=== PATIENT | male | born 1970 | race Hispanic/Latino ===

== ENCOUNTER 2019-02-20 12:02 | Emergency (ER) | payer SELFPAY ==
[2019-02-20] MEDS ORDERED: FENTANYL CITR 100 MCG/2 ML ONE (12:40)
[2019-02-20] MEDS ORDERED: ONDANSETRON 4 MG/2 ML VIAL ONE (12:40)
[2019-02-20] MEDS ORDERED: TETANUS & DIPHTHERIA TOX,ADULT 0.5 ML VIAL ONE (12:41)
[2019-02-20] MEDS ORDERED: NA CHLORIDE 0.9% 1,000 ML ONE (12:41)
[2019-02-20] MEDS ORDERED: MIDAZOLAM HCL 2 MG/2 ML INJ ONE (13:32)
[2019-02-20] MEDS ORDERED: BACI/NEOMYCIN/POLY OINT 15GM TOP ONE (13:43)
--- NOTE | 2019-02-20 13:54 | EDPHYS ---
Physician Documentation [facility] Name: Stefan Finley Age: 48 yrs Sex: Male : 1970 Arrival Date: 02/20/2019 Time: 12:03 Bed 2 Private MD: ED Physician Alex Spicer HPI: 02/20 13:50 This 48 yrs old Male presents to ER via EMS with complaints of Burn. jr8 13:50 The patient presents with a burn as a result of hot surface, at work, is located on the jr8 back. Onset: The symptoms/episode began/occurred acutely, today. Burn type and severity: 2nd degree: approximately 2% total body surface area of second degree injury. Associated signs and symptoms: none. The patient had no loss of consciousness. The patient has not experienced similar symptoms in the past. The patient has not recently seen a physician. Patient stated that he accidently touched his back to hot pipe while at work causing burn to back. Denies any other trauma or burn sites . Historical: - Allergies: 12:07 Sulfa (Sulfonamide Antibiotics); hj - Home Meds: 12:07 None [Active]; hj - PMHx: 12:07 None; hj - PSHx: 12:07 None; hj - Immunization history:: Adult Immunizations up to date. - Social history:: Smoking status: Patient uses tobacco products, Patient/guardian denies using alcohol. - Ebola Screening: : Patient negative for fever greater than or equal to 101.5 degrees Fahrenheit, and additional compatible Ebola Virus Disease symptoms Patient denies exposure to infectious person Patient denies travel to an Ebola-affected area in the 21 days before illness onset. ROS: 13:50 Eyes: Negative for injury, pain, redness, and discharge, ENT: Negative for injury, jr8 pain, and discharge, Neck: Negative for injury, pain, and swelling, Cardiovascular: Negative for chest pain, palpitations, and edema, Respiratory: Negative for shortness of breath, cough, wheezing, and pleuritic chest pain, Abdomen/GI: Negative for abdominal pain, nausea, vomiting, diarrhea, and constipation, Back: Negative for injury and pain, MS/Extremity: Negative for injury and deformity, Neuro: Negative for headache, weakness, numbness, tingling, and seizure. 13:50 Skin: Positive for burn, of the back. Exam: 13:50 Eyes: Pupils equal round and reactive to light, extra-ocular motions intact. Lids and jr8 lashes normal. Conjunctiva and sclera are non-icteric and not injected. Cornea within normal limits. Periorbital areas with no swelling, redness, or edema. ENT: Nares patent. No nasal discharge, no septal abnormalities noted. Tympanic membranes are normal and external auditory canals are clear. Oropharynx with no redness, swelling, or masses, exudates, or evidence of obstruction, uvula midline. Mucous membranes moist. Neck: Trachea midline, no thyromegaly or masses palpated, and no cervical lymphadenopathy. Supple, full range of motion without nuchal rigidity, or vertebral point tenderness. No Meningismus. Cardiovascular: Regular rate and rhythm with a normal S1 and S2. No gallops, murmurs, or rubs. Normal PMI, no JVD. No pulse deficits. Respiratory: Lungs have equal breath sounds bilaterally, clear to auscultation and percussion. No rales, rhonchi or wheezes noted. No increased work of breathing, no retractions or nasal flaring. Abdomen/GI: Soft, non-tender, with normal bowel sounds. No distension or tympany. No guarding or rebound. No evidence of tenderness throughout. Back: No spinal tenderness. No costovertebral tenderness. Full range of motion. MS/ Extremity: Pulses equal, no cyanosis. Neurovascular intact. Full, normal range of motion. Neuro: Awake and alert, GCS 15, oriented to person, place, time, and situation. Cranial nerves II-XII grossly intact. Motor strength 5/5 in all extremities. Sensory grossly intact. Cerebellar exam normal. Normal gait. 13:50 Skin: injury, burn(s), 2nd degree burn injury covers approximately 2% of the total body surface area, and is located on the low back area. Vital Signs: 12:09 BP 158 / 95; Pulse 79; Resp 18; Temp 98.7(O); Pulse Ox 98% on R/A; Weight 77.11 kg; hj Height 5 ft. 5 in. (165.10 cm); Pain 10/10; 12:41 BP 132 / 89; Pulse 66; Resp 14; Pulse Ox 96% ; bp 12:09 Body Mass Index 28.29 (77.11 kg, 165.10 cm) Procedures: 13:50 Burn Care: the burn(s) are located on the back, cleaned with Hibiclens, normal saline, jr8 debrided, wound edges, dressed with antibiotic ointment, non-stick dressing. Moderate sedation: Pre-procedure assessment: the patient has been NPO 4 hour(s) prior to arrival, ASA physical classification: I - healthy, no underlying organic disease, Airway assessment: able to hyperextend neck, able to maintain airway, can open mouth without difficulty, Mallampati classification of tongue size: I - faucial pillars, soft palate, and uvula can be fully visualized, Monitoring during procedure: telemetry monitor, continuous pulse oximetry, nurse at bedside at all times, Medications employed: Versed, 4 mg(s), Post-procedure assessment: the patient is mildly sedated, Stallworth sedation score: 2 - patient cooperative, oriented, and tranquil, Respiratory status: even and unlabored, a reversal agent was not used. MDM: 12:04 Patient medically screened. [facility] 13:50 Data reviewed: vital signs, nurses notes, and as a result, I will discharge patient. [facility] Data interpreted: Pulse oximetry: on room air is 96 %. Interpretation: normal. Counseling: I had a detailed discussion with the patient and/or guardian regarding: the historical points, exam findings, and any diagnostic results supporting the discharge/admit diagnosis, the need for outpatient follow up, a family practitioner, to return to the emergency department if symptoms worsen or persist or if there are any questions or concerns that arise at home. 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 Exp: bp 11/11/2020. Lot #: [id number]. } Route: IM; Site: right deltoid; 14:05 Follow up: Response: No adverse reaction 12:20 Drug: fentaNYL (PF) 75 mcg Route: IVP; Site: right antecubital; bp 14:04 Follow up: Response: Pain is decreased 12:20 Drug: Zofran 4 mg Route: IVP; Site: right antecubital; bp 14:04 Follow up: Response: No adverse reaction; Nausea is decreased Disposition: 02/21 09:43 Co-signature as Attending Physician, Alex Spicer MD I agree with the assessment and wa plan of care. Disposition: 02/20/19 13:53 Discharged to Home. Impression: Burn of second degree of lower back. - Condition is Stable. - Discharge Instructions: Burn Care, Adult, Second-Degree Burn. - Prescriptions for Ibuprofen 800 mg Oral Tablet - take 1 tablet by ORAL route every 8 hours As needed take with food; 30 tablet. - Medication Reconciliation Form, Thank You Letter, Antibiotic Education, Prescription Opioid Use form. - Follow up: Private Physician; When: Tomorrow; Reason: Wound Recheck, Recheck today's complaints, Continuance of care, Re-evaluation by your physician. - Problem is new. - Symptoms have improved. - Notes: Bacitracin over the counter to be applied daily to burn site Signatures: Gerry Mejia PA PA jr8 Caesar Santana RN RN hj Appiah, William, MD MD tx Petr Bernabe, RN RN bp Corrections: (The following items were deleted from the chart) 02/20 14:03 13:53 02/20/2019 13:53 Discharged to Home. Impression: Burn of second degree of lower hj back. Condition is Stable. Forms are Medication Reconciliation Form, Thank You Letter, Antibiotic Education, Prescription Opioid Use. Follow up: Private Physician; When: Tomorrow; Reason: Wound Recheck, Recheck today's complaints, Continuance of care, Re-evaluation by your physician. Problem is new. Symptoms have improved. jr8
--- NOTE | 2019-02-20 13:54 | ER ---
Nurse's Notes [facility] Name: Stefan Finley Age: 48 yrs Sex: Male : 1970 Arrival Date: 02/20/2019 Time: 12:03 Bed 2 Private MD: Diagnosis: Burn of second degree of lower back Presentation: 02/20 12:04 Presenting complaint: EMS states: at work from [employer], complaints of lower back hj burn from a "dryer" equipment, happened around 11:00; EMS got called around 1123 am on scene; 18g R AC;. Transition of care: patient was not received from another setting of care. Onset of symptoms was February 20, 2019. Risk Assessment: Do you want to hurt yourself or someone else? Patient reports no desire to harm self or others. Initial Sepsis Screen: Does the patient meet any 2 criteria? No. Patient's initial sepsis screen is negative. Does the patient have a suspected source of infection? No. Patient's initial sepsis screen is negative. Care prior to arrival: None. 12:04 Method Of Arrival: EMS: [facility] 12:04 Acuity: DNAIELITO 3 hj Triage Assessment: 12:08 General: Appears in no apparent distress. uncomfortable, Behavior is calm, cooperative, hj appropriate for age. Pain: Complains of pain in low back area, left low back and right low back. Respiratory: Airway is patent Respiratory effort is even, unlabored, Respiratory pattern is regular, symmetrical. Injury Description: Historical: - Allergies: 12:07 Sulfa (Sulfonamide Antibiotics); hj - Home Meds: 12:07 None [Active]; hj - PMHx: 12:07 None; hj - PSHx: 12:07 None; hj - Immunization history:: Adult Immunizations up to date. - Social history:: Smoking status: Patient uses tobacco products, Patient/guardian denies using alcohol. - Ebola Screening: : Patient negative for fever greater than or equal to 101.5 degrees Fahrenheit, and additional compatible Ebola Virus Disease symptoms Patient denies exposure to infectious person Patient denies travel to an Ebola-affected area in the 21 days before illness onset. Screenin:07 Abuse screen: Denies threats or abuse. Denies injuries from another. Nutritional hj screening: No deficits noted. Tuberculosis screening: No symptoms or risk factors identified. Fall Risk None identified. Assessment: 12:10 General: SEE TRIAGE NOTE. Injury Description: Burn was sustained 30-60 minutes ago. bp Patient sustained second-degree burn(s) to low back area. Estimated total body surface area burned is 2%, using the Rule of Palms. Vital Signs: 12:09 BP 158 / 95; Pulse 79; Resp 18; Temp 98.7(O); Pulse Ox 98% on R/A; Weight 77.11 kg; hj Height 5 ft. 5 in. (165.10 cm); Pain 10/10; 12:41 BP 132 / 89; Pulse 66; Resp 14; Pulse Ox 96% ; bp 12:09 Body Mass Index 28.29 (77.11 kg, 165.10 cm) hj ED Course: 12:03 Patient arrived in ED. hj 12:04 Gerry Mejia PA is PHCP. jr8 12:04 Alex Spicer MD is Attending Physician. jr8 12:06 Triage completed. hj 12:08 Arm band placed on right wrist. hj 12:09 Patient has correct armband on for positive identification. Bed in low position. Call hj light in reach. Side rails up X2. 12:10 Petr Bernabe, RN is Primary Nurse. bp 12:10 Maintain EMS IV. Dressing intact. Good blood return noted. Site clean \\T\\ dry. Gauge \\T\\ bp site: 18 G R AC. 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 Exp: bp 11/11/2020. Lot #: [id number]. } Route: IM; Site: right deltoid; 14:05 Follow up: Response: No adverse reaction hj 12:20 Drug: fentaNYL (PF) 75 mcg Route: IVP; Site: right antecubital; bp 14:04 Follow up: Response: Pain is decreased hj 12:20 Drug: Zofran 4 mg Route: IVP; Site: right antecubital; bp 14:04 Follow up: Response: No adverse reaction; Nausea is decreased hj Outcome: 13:53 Discharge ordered by . jr8 14:03 Patient left the ED. hj Signatures: Gerry Mejia PA PA jr8 Caesar Santana RN RN hj Petr Bernabe RN RN bp Corrections: (The following items were deleted from the chart) 12:34 12:09 Derm: Reports burning, bp 12:40 12:10 Inserted saline lock: 20 gauge in right antecubital area, using aseptic bp technique. bp
== END 2019-02-20 14:03 | disposition home or self-care (01) ==
LOC: ER 12:02
PROC: 0HB6XZZ Excision of Back Skin, External Approach (ICD-10-PCS; principal; 2019-02-20)
DX: T21.24XA Burn of second degree of lower back, initial encounter (principal); T31.0 Burns involving less than 10% of body surface; X16.XXXA Contact with hot heating appliances, radiators and pipes, initial encounter; Y93.89 Activity, other specified; Y92.89 Other specified places as the place of occurrence of the external cause; Y99.8 Other external cause status; Z72.0 Tobacco use; Z88.2 Allergy status to sulfonamides
CPT/HCPCS: 90471; 90714; 96374; 96375; 99283; J2250; J2405; J3010; J7030

== ENCOUNTER 2021-02-27 08:55 | Emergency (ER) | payer SELFPAY ==
--- OUTSIDE RECORDS SUMMARY | 2021-02-27 08:58 | XMS REPORT | Continuity of Care Document ---
:1970 Author Organization [facility] t Address [facility] [place] [address] Care Team Providers Name Role Phone Unavailable Unavailable Unavailable Problems This patient has no known problems. Allergies, Adverse Reactions, Alerts This patient has no known allergies or adverse reactions. Medications This patient has no known medications. Procedures This patient has no known procedures. Results This patient has no known results.
[2021-02-27] MEDS ORDERED: KETOROLAC 30 MG/ML INJ ONE (09:53)
[2021-02-27] MEDS ORDERED: METHYLPREDNISOLONE 125 MG INJ ONE (09:53)
[2021-02-27] MEDS ORDERED: GABAPENTIN 300 MG CAP ONE (09:53)
--- NOTE | 2021-02-27 09:55 | RAD REPORT ---
EXAM DESCRIPTION: CT - C Spine Wo Con - 02/27/2021 9:37 am CLINICAL HISTORY: PAIN COMPARISON: No comparisons TECHNIQUE CT Scan was obtained of the cervical spine without contrast. Reformats were provided in th e sagittal and coronal plane. FINDINGS: No acute fracture of the cervical spine. No traumatic malalignment. No prevertebral edema. There is a broad-based disc bulge at the C5-6 level which results in effacement of ventral thecal sa c. There is also a central disc herniation at C6-7 without significant central spinal stenosis. No whitehead spicious thyroid nodules or lymphadenopathy. The lung apices are clear. IMPRESSION: No fracture or traumatic malalignment of the cervical spine. Disc bulges/herniations at C5-C6 and C6-C7 which results in some thecal sac effacement though not severe. Nonemergent MRI could better evaluate if clinically indicated.
--- NOTE | 2021-02-27 10:52 | ER ---
Nurse's Notes [facility] Name: Stefan Finley Age: 50 yrs Sex: Male : 1970 Arrival Date: 02/27/2021 Time: 08:58 Bed 5 Private MD: Diagnosis: Radiculopathy, cervical region;Unspecified mononeuropathy of left upper limb Presentation: 02/27 09:11 Chief complaint: Patient states: knot to L side of neck x months that causes pain to ss radiate down L arm. Pt reports that he was seen before in another ER and told that he just needed to have it massaged out. Pt reports that the knot seems to be bigger and pain has been increasing. Coronavirus screen: Client denies travel out of the [place] in the last 14 days. Ebola Screen: Patient denies exposure to infectious person. Patient denies travel to an Ebola-affected area in the 21 days before illness onset. Initial Sepsis Screen: Does the patient meet any 2 criteria? No. Patient's initial sepsis screen is negative. Does the patient have a suspected source of infection? No. Patient's initial sepsis screen is negative. Risk Assessment: Do you want to hurt yourself or someone else? Patient reports no desire to harm self or others. Onset of symptoms is unknown. 09:11 Method Of Arrival: Ambulatory ss 09:11 Acuity: DANIELITO 4 ss Historical: - Allergies: 09:15 Sulfa (Sulfonamide Antibiotics); tw2 - Home Meds: 09:15 None [Active]; tw2 - PMHx: 09:15 None; tw2 - Immunization history:: Adult Immunizations. - Social history:: Smoking status: . Screenin:11 Abuse screen: Denies threats or abuse. Nutritional screening: No deficits noted. tw2 Tuberculosis screening: No symptoms or risk factors identified. Fall Risk None identified. Assessment: 09:03 General: Appears in no apparent distress. uncomfortable, well groomed, Behavior is tw2 calm, cooperative, appropriate for age. Pain: Complains of pain in left shoulder. Neuro: Level of Consciousness is awake, alert, obeys commands, Oriented to person, place, time, situation. Cardiovascular: Patient's skin is warm and dry. Respiratory: Airway is patent Respiratory effort is even, unlabored, Respiratory pattern is regular, symmetrical. GI: No signs and/or symptoms were reported involving the gastrointestinal system. : No signs and/or symptoms were reported regarding the genitourinary system. EENT: No signs and/or symptoms were reported regarding the EENT system. Derm: No signs and/or symptoms reported regarding the dermatologic system. Musculoskeletal: Circulation, motion, and sensation intact. Range of motion: intact in all extremities. 10:10 Reassessment: Patient appears in no apparent distress at this time. No changes from tw2 previously documented assessment. Patient and/or family updated on plan of care and expected duration. Pain level reassessed. Patient is alert, oriented x 3, equal unlabored respirations, skin warm/dry/pink. 11:37 Reassessment: Patient appears in no apparent distress at this time. No changes from tw2 previously documented assessment. Patient and/or family updated on plan of care and expected duration. Pain level reassessed. Patient is alert, oriented x 3, equal unlabored respirations, skin warm/dry/pink. Vital Signs: 09:11 BP 159 / 100; Pulse 65; Resp 16; Temp 97.9(TE); Pulse Ox 99% on R/A; Weight 84.82 kg; ss Height 5 ft. 5 in. (165.10 cm); Pain 8/10; 09:14 BP 159 / 100; Pulse 66; Resp 17; Pulse Ox 97% on R/A; tw2 09:55 BP 134 / 91; Pulse 65; Resp 17; Pulse Ox 97% on R/A; tw2 10:48 BP 132 / 91; Pulse 59; Resp 18; Pulse Ox 100% ; sv 11:37 BP 132 / 91; Pulse 57; Resp 17; Pulse Ox 99% on R/A; tw2 09:11 Body Mass Index 31.12 (84.82 kg, 165.10 cm) ED Course: 08:58 Patient arrived in ED. wm 09:01 Scar Field MD is Attending Physician. kdr 09:03 Bed in low position. Call light in reach. Pulse ox on. NIBP on. tw2 09:11 Dona Fields, LUIS is Primary Nurse. tw2 09:14 Arm band placed on. tw2 09:16 Triage completed. ss 09:33 Awaiting: medication from pharmacy. tw2 09:37 CT C Spine In Process Unspecified. EDMS 09:50 Inserted saline lock: 20 gauge in right antecubital area, using aseptic technique. tw2 10:52 Awaiting: completion of IV medication PRIOR to discharge. tw2 11:38 No provider procedures requiring assistance completed. IV discontinued, intact, tw2 bleeding controlled, No redness/swelling at site. Pressure dressing applied. Administered Medications: 09:50 Drug: Neurontin (gabapentin) 300 mg Route: PO; tw2 10:14 Follow up: Response: No adverse reaction tw2 09:53 Drug: Ketorolac 15 mg Route: IVP; Site: right antecubital; tw2 10:14 Follow up: Response: No adverse reaction tw2 09:55 Drug: SOLU-Medrol (methylPrednisoLONE) 125 mg Route: IVP; Site: right antecubital; tw2 10:16 Follow up: Response: No adverse reaction tw2 10:14 Drug: Robaxin (methocarbamol) 1 grams Route: IVPB; Infused Over: 1 hrs; Site: right tw2 antecubital; 11:25 Follow up: Response: No adverse reaction; IV Status: Completed infusion tw2 Outcome: 10:52 Discharge ordered by . kdr 11:38 Discharged to home ambulatory. tw2 11:38 Condition: stable 11:38 Discharge instructions given to patient, Instructed on discharge instructions, follow up and referral plans. no drinking with medication, no driving heavy equipment, medication usage, Demonstrated understanding of instructions, follow-up care, medications, Prescriptions given X 3. 11:38 Patient left the ED. tw2 Signatures: Dispatcher [employer] EDTX Aline Hood RN RN Scar Field MD MD [facility] Rosanna Mtz RN RN Dona Fields RN RN [facility] Tammi Peña
--- NOTE | 2021-02-27 10:52 | EDPHYS ---
Physician Documentation [facility] Name: Stefan Finley Age: 50 yrs Sex: Male : 1970 Arrival Date: 02/27/2021 Time: 08:58 Bed 5 Private MD: ED Physician Scar Field HPI: 02/27 11:16 This 50 yrs old Male presents to ER via Ambulatory with complaints of Shoulder kdr Pain. 11:16 The patient or guardian complains of pain, that is chronic. kdr 11:17 The patient's problem is reported as pain radiating down his left arm. Onset: The kdr symptoms/episode began/occurred gradually, 2.5 month(s) ago. Duration: The episode is continuous. Context: symptoms became apparent at an unknown time. The symptoms are alleviated by nothing. The symptoms are aggravated by nothing. Associated signs and symptoms: Pertinent positives:. Severity of symptoms: At their worst the symptoms were mild moderate just prior to arrival, in the emergency department the symptoms are unchanged. The patient has experienced a previous episode, approximately 2.5 months ago. The patient has not recently seen a physician. Historical: - Allergies: 09:15 Sulfa (Sulfonamide Antibiotics); tw2 - Home Meds: 09:15 None [Active]; tw2 - PMHx: 09:15 None; tw2 - Immunization history:: Adult Immunizations. - Social history:: Smoking status: . ROS: 11:17 Constitutional: Negative for fever, chills, and weight loss, Eyes: Negative for injury, kdr pain, redness, and discharge, Neck: Negative for injury, pain, and swelling, Cardiovascular: Negative for chest pain, palpitations, and edema, Respiratory: Negative for shortness of breath, cough, wheezing, and pleuritic chest pain, Abdomen/GI: Negative for abdominal pain, nausea, vomiting, diarrhea, and constipation, Back: Negative for injury and pain, : Negative for injury, bleeding, discharge, and swelling, MS/Extremity: Negative for injury and deformity, Skin: Negative for injury, rash, and discoloration, Psych: Negative for depression, anxiety, suicide ideation, homicidal ideation, and hallucinations, Allergy/Immunology: Negative for hives, rash, and allergies, Endocrine: Negative for neck swelling, polydipsia, polyuria, polyphagia, and marked weight changes, Hematologic/Lymphatic: Negative for swollen nodes, abnormal bleeding, and unusual bruising. 11:17 Neuro: Positive for pain in left arm. Exam: 11:17 Constitutional: This is a well developed, well nourished patient who is awake, alert, kdr and in no acute distress. Head/Face: Normocephalic, atraumatic. Eyes: Pupils equal round and reactive to light, extra-ocular motions intact. Lids and lashes normal. Conjunctiva and sclera are non-icteric and not injected. Cornea within normal limits. Periorbital areas with no swelling, redness, or edema. Neck: Trachea midline, no thyromegaly or masses palpated, and no cervical lymphadenopathy. Supple, full range of motion without nuchal rigidity, or vertebral point tenderness. No Meningismus. Chest/axilla: Normal chest wall appearance and motion. Nontender with no deformity. No lesions are appreciated. Cardiovascular: Regular rate and rhythm with a normal S1 and S2. No gallops, murmurs, or rubs. Normal PMI, no JVD. No pulse deficits. Respiratory: Lungs have equal breath sounds bilaterally, clear to auscultation and percussion. No rales, rhonchi or wheezes noted. No increased work of breathing, no retractions or nasal flaring. Abdomen/GI: Soft, non-tender, with normal bowel sounds. No distension or tympany. No guarding or rebound. No evidence of tenderness throughout. Back: No spinal tenderness. No costovertebral tenderness. Full range of motion. Skin: Warm, dry with normal turgor. Normal color with no rashes, no lesions, and no evidence of cellulitis. MS/ Extremity: Pulses equal, no cyanosis. Neurovascular intact. Full, normal range of motion. Neuro: Awake and alert, GCS 15, oriented to person, place, time, and situation. Cranial nerves II-XII grossly intact. Motor strength 5/5 in all extremities. Sensory grossly intact. Cerebellar exam normal. Normal gait. Psych: Awake, alert, with orientation to person, place and time. Behavior, mood, and affect are within normal limits. 11:24 Radiologist reports: Possible mild nerve root effacement/radiculopathy kdr Vital Signs: 09:11 BP 159 / 100; Pulse 65; Resp 16; Temp 97.9(TE); Pulse Ox 99% on R/A; Weight 84.82 kg; ss Height 5 ft. 5 in. (165.10 cm); Pain 8/10; 09:14 BP 159 / 100; Pulse 66; Resp 17; Pulse Ox 97% on R/A; tw2 09:55 BP 134 / 91; Pulse 65; Resp 17; Pulse Ox 97% on R/A; tw2 10:48 BP 132 / 91; Pulse 59; Resp 18; Pulse Ox 100% ; sv 11:37 BP 132 / 91; Pulse 57; Resp 17; Pulse Ox 99% on R/A; tw2 09:11 Body Mass Index 31.12 (84.82 kg, 165.10 cm) ss MDM: 10:52 Patient medically screened. kdr 11:15 Counseling: I had a detailed discussion with the patient and/or guardian regarding: the kdr historical points, exam findings, and any diagnostic results supporting the discharge/admit diagnosis, radiology results, the need for outpatient follow up. Response to treatment: the patient's symptoms have markedly improved after treatment. Special discussion: I discussed with the patient/guardian in detail that at this point there is no indication for admission to the hospital. It is understood, however, that if the symptoms persist or worsen the patient needs to return immediately for re-evaluation. Based on the history and exam findings, there is no indication for further emergent testing or inpatient evaluation. I discussed with the patient/guardian the need to see the neurologist for further evaluation of the symptoms. 11:17 Data reviewed: vital signs, nurses notes, radiologic studies. kdr 02/27 09:25 Order name: CT C Spine; Complete Time: 10:43 kdr 02/27 09:54 Order name: IV Start; Complete Time: 09:54 tw2 Administered Medications: 09:50 Drug: Neurontin (gabapentin) 300 mg Route: PO; tw2 10:14 Follow up: Response: No adverse reaction tw2 09:53 Drug: Ketorolac 15 mg Route: IVP; Site: right antecubital; tw2 10:14 Follow up: Response: No adverse reaction tw2 09:55 Drug: SOLU-Medrol (methylPrednisoLONE) 125 mg Route: IVP; Site: right antecubital; tw2 10:16 Follow up: Response: No adverse reaction tw2 10:14 Drug: Robaxin (methocarbamol) 1 grams Route: IVPB; Infused Over: 1 hrs; Site: right tw2 antecubital; 11:25 Follow up: Response: No adverse reaction; IV Status: Completed infusion tw2 Disposition Summary: 02/27/21 10:52 Discharge Ordered Location: Home kdr Problem: an acute exacerbation kdr Symptoms: have improved kdr Condition: Stable kdr Diagnosis - Radiculopathy, cervical region kdr - Unspecified mononeuropathy of left upper limb kdr Followup: kdr - With: Private Physician - When: 2 - 3 days - Reason: If symptoms return, Further diagnostic work-up, Recheck today's complaints, Continuance of care, Re-evaluation by your physician Discharge Instructions: - Cervical Radiculopathy kdr - Neuropathic Pain kdr - Discharge Summary Sheet tw2 - Pinched Nerve kdr - Peripheral Neuropathy kdr - Radicular Pain kdr Forms: - Work release form tw2 - Medication Reconciliation Form kdr - Thank You Letter kdr Prescriptions: - Neurontin 300 mg Oral Capsule - take 1 capsule by ORAL route every 8 hours; 15 capsule; Refills: 0, Product kdr Selection Permitted - Cyclobenzaprine 10 mg Oral Tablet - take 1 tablet by ORAL route every 8 hours As needed; 15 tablet; Refills: 0, kdr Product Selection Permitted - Medrol (Tristin) 4 mg Oral Tablets, Dose Pack - take 1 tablet by ORAL route as directed - follow package instructions; 1 kdr packet; Refills: 0, Product Selection Permitted Signatures: Dispatcher [employer] Scar Venegas MD MD kdr Dona Fields RN RN tw2
[2021-02-27 11:46] VITALS: TEMP 97.9
[2021-02-27 11:51] VITALS: BP 132/91
[2021-02-27 11:53] VITALS: O2SAT 99
== END 2021-02-27 11:38 | disposition home or self-care (01) ==
LOC: ER 08:55
DX: M54.12 Radiculopathy, cervical region (principal); Z88.2 Allergy status to sulfonamides
CPT/HCPCS: 72125; 96365; 96375; 99284; J2800; J2930

== ENCOUNTER 2022-02-19 17:56 | Emergency (ER) | payer SELFPAY ==
[2022-02-19 19:07] LABS: Absolute Lymphocytes (CBC) 2.6 K/uL (0.7-4.9); Hematocrit 41.1 % (39.6-49.0); Lymphocytes % 34.7 % (15.3-44.8); MCV 90.7 fL (80-100); RBC Red Blood Cell Count 4.53 M/uL (4.33-5.43)
[2022-02-19] MEDS ORDERED: LIDOCAINE 4% PATCH ONE (19:07)
[2022-02-19] MEDS ORDERED: KETOROLAC 30 MG/ML INJ ONE (19:07)
[2022-02-19 19:09] LABS: Protime INR 0.99
--- NOTE | 2022-02-19 19:21 | RAD REPORT ---
EXAM DESCRIPTION: CT - Head C Spine Mpr Wo Con - 02/19/2022 7:03 pm CLINICAL HISTORY: Headache and radiculopathy COMPARISON: 2020 TECHNIQUE: Computed axial tomography of the head and cervical spine was obtained. Sagittal and coronal reconstruction was performed. All CT scans are performed using dose optimization technique as appropriate and may include automated exposure control or mA/KV adjustment according to patient size. FINDINGS: An intracranial bleed is not seen. The ventricles are normal in caliber. An extra-axial fl uid collection is not noted.Fluid within the visualized sinuses and mastoids is not seen A cervical fracture is not visualized. No dislocation is noted. Disc bulge C5-6 results in mild central spinal stenosis Small central disc herniation is suspected C6-7 IMPRESSION: No acute intracranial abnormality is seen. A cervical fracture is not visualized. Spondylosis C6-7 resulting mild central spinal stenosis Small central disc herniation suspected C6-7 If the patient continues to have symptoms to suggest intracranial /spinal cord/spinal canal pathology then MRI would be recommended
--- NOTE | 2022-02-19 19:22 | RAD REPORT ---
EXAM DESCRIPTION: Simone Single View02/19/2022 7:03 pm CLINICAL HISTORY: Chest pain COMPARISON: none FINDINGS: The lungs appear clear of acute infiltrate. The heart is normal size IMPRESSION: No acute abnormalities displayed
[2022-02-19 19:26] LABS: Albumin 3.9 g/dL (3.4-5.0); Bilirubin Direct 0.2 mg/dL (0-0.2); Magnesium 2.3 mg/dL (1.8-2.4); Potassium 3.5 mmol/L (3.5-5.1); Protein, Total 7.1 g/dL (6.4-8.2); Troponin High Sensitivity 5.3 pg/mL (<58.9)
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
[2022-02-19 20:48] VITALS: BP 135/92; TEMP 98.7; O2SAT 98
--- NOTE | 2022-02-23 08:05 | EKG ---
Test Date: 2022-02-19 Test Time: 18:52:13 School Traffic Supervisor: BP MEASUREMENT RESULTS: Intervals: Rate: 62 NE: 142 QRSD: 86 QT: 400 QTc: 406 [place]: P: 39 NE: 142 QRS: 50 T: 45 INTERPRETIVE STATEMENTS: Normal sinus rhythm Normal ECG No previous ECG available for comparison Electronically Signed On 02-23-22 07:56:27 CDT by Chad Swann
== END 2022-02-19 20:35 | disposition home or self-care (01) ==
LOC: ER 17:56
DX: R07.9 Chest pain, unspecified (principal); R51.9 Headache, unspecified; M50.10 Cervical disc disorder with radiculopathy, unspecified cervical region; Z88.2 Allergy status to sulfonamides; Z85.47 Personal history of malignant neoplasm of testis
CPT/HCPCS: 36415; 70450; 71045; 72125; 80048; 80076; 83735; 83880; 84484; 85025; 85610; 93005; 96374; 99284; J2001

== ENCOUNTER 2022-05-13 15:50 | Emergency (ER) | payer SELFPAY ==
--- OUTSIDE RECORDS SUMMARY | 2022-05-13 15:53 | XMS REPORT | Continuity of Care Document ---
:1970 Author Organization [facility] t Address [address] [place] [address] Care Team Providers Name Role Phone Pcp, Patient Does Not Have A Primary Care Physician [id number] Lillie Trent Attending Clinician Doctor Unassigned, [place] Attending Clinician Unavailable Problems Condition Condition Condition Status Onset Resolution Last Treating Co mments Source Name Details Category Date Date Treatment Clinician Date JAJA (acute JAJA (acute Disease Active U nivers kidney kidney 7-29 ity of injury) injury) 00:00: [place] 00 Medical Branch Abdominal Abdominal Disease Active Uni vers pain, pain, 7-18 ity of right right 00:00: [place] upper upper 00 Medical quadrant quadrant Branch Allergies, Adverse Reactions, Alerts Allergy Allergy Status Severity Reaction(s) Onset Inactive Treating Comm ents Source Name Type Date Date Clinician Sulfa Propensi Active Anaphylaxis Uni vers (Sulfona ty to 7-18 ity of mide adverse 00:00: [place] Antibiot reaction 00 Medica l ics) s Branch Social History Social Habit Start Date Stop Date Quantity Comments Source Exposure to 2022-01-02 2022-01-12 Not sure [facility] SARS-CoV-2 (event) 00:00:00 15:27:00 Medica l Branch Tobacco use and 2016-03-19 2016-03-19 Never used [facility] exposure 00:00:00 00:00:00 Medical Branch Sex [birth year] [facility] 00:00:00 00:00:00 Medical Branch Smoking Status Start Date Stop Date Source Current some day smoker 2016-03-19 00:00:00 [facility] Medical Branch Medications Ordered Filled Start Stop Current Ordering Indication Dosage Frequency Signature Comments Components Source Medication Medication Date Date Medication? Clinician (SIG) Name Name naproxen Yes [id number] 500mg Take 1 Univers 500 mg 5-24 [id number] tablet by ity of tablet 00:00: mouth 2 (two) Medical times Branch daily with meals. gabapentin Yes [id number] 100mg Take 1 Univers 100 mg 5-24 [id number] capsule by ity o f capsule 00:00: mouth 3 (three) Medical times Branch daily. methocarbam Yes [id number] 500mg Take 1 Univers oL 500 mg 5-24 [id number] tablet by ity of tablet 00:00: mouth 4 (four) Medical times Branch daily as needed (muscle pain). cyclobenzap 2018-08 Yes [id number] 10mg Take 1 Univers rine 10 mg 2-30 tablet by ity of tablet 00:00: mouth 3 (three) Medical times Branch daily. ibuprofen 2018-08 Yes [id number] 600mg Take 1 U nivers 600 mg 2-30 tablet by ity of tablet 00:00: mouth [place] 00 every 6 Medical (six) Branch hours as needed for Pain (scale 4-6). cyclobenzap 2018-08 Yes [id number] 10mg Take 1 Univers rine 10 mg 2-30 tablet by ity of tablet 00:00: mouth 3 (three) Medical times Branch daily. ibuprofen 2018-08 Yes [id number] 600mg Take 1 U nivers 600 mg 2-30 tablet by ity of tablet 00:00: mouth [place] 00 every 6 Medical (six) Branch hours as needed for Pain (scale 4-6). naproxen Yes [id number] 500mg Take 1 U nivers (NAPROSYN) 6-05 tablet by ity of 500 mg 00:00: mouth 2 [place] tablet 00 (two) Medical times Branch daily with meals. naproxen Yes [id number] 500mg Take 1 U nivers (NAPROSYN) 6-05 tablet by ity of 500 mg 00:00: mouth 2 [place] tablet 00 (two) Medical times Branch daily with meals. Vital Signs Vital Name Observation Time Observation Value Comments Source Systolic blood 2022-01-12 20:28:00 146 mm[Hg] Univer sity of pressure [facility] Diastolic blood 2022-01-12 20:28:00 99 mm[Hg] Unive rsity of pressure [facility] Heart rate 2022-01-12 20:28:00 82 /min Universi [facility] Body temperature 2022-01-12 20:28:00 36.89 [facility] Res[facility] rate 2022-01-12 20:28:00 29 /min [facility] Body height 2022-01-12 20:28:00 165.1 cm Universi ty of [facility] Body weight 2022-01-12 20:28:00 77.111 kg Universi ty [facility] BMI 2022-01-12 20:28:00 28.29 kg/m2 [facility] Oxygen saturation in 2022-01-12 20:28:00 99 /min [facility] Arterial blood by [facility] Pulse oximetry Branch Procedures Procedure Date / Time Performed Performing Clinician [facility] e NOTICE OF PRIVACY 2022-01-12 20:18:28 Doctor Unassigned, No Univ [facility] PRACTICES Name [facility] CONSENT/REFUSAL FOR 2022-01-12 20:18:16 Doctor Unassigned, No [facility] DIAGNOSIS AND Name Medical Branch TREATMENT Encounters Start End Encounter Admission Attending Care Care Encounter Source Date/Time Date/Time Type Type Clinicians Facility Department ID 2022-01-12 2022-01-12 Emergency Maher [facility] [id number] Univers 15:29:00 16:26:00 Lillie VILLARREAL [id number] i ty of [place] [id number] [facility] [id number] [facility] 084 Branch 2022-01-12 2022-01-12 Orders Doctor RIVAS [id number] Univers 00:00:00 00:00:00 Only Unassigned, PEGGY [id number] ity of [place] [facility] [id number] Cheng [id number] [facility] 009 Branch Results This patient has no known results.
[2022-05-13 18:52] LABS: Urine Blood Negative (Negative); Urine Glucose Negative (Negative); Urine Protein Negative (Negative); Urine Specific Gravity >=1.030 (1.005-1.030); Urine pH 5.5 (5.0-7.0)
[2022-05-13 18:57] LABS: Absolute Lymphocytes (CBC) 2.6 K/uL (0.7-4.9); Hematocrit 46.6 % (39.6-49.0); Lymphocytes % 25.4 % (15.3-44.8); MCV 90.6 fL (80-100); MPV 10.1 fL (7.6-11.3); RBC Red Blood Cell Count 5.14 M/uL (4.33-5.43)
[2022-05-13 18:58] LABS: Protime INR 1.07
[2022-05-13] MEDS ORDERED: FAMOTIDINE 20 MG/2 ML VIAL IV ONE (19:05)
[2022-05-13] MEDS ORDERED: NA CHLORIDE 0.9% 1,000 ML ONE (19:05)
[2022-05-13] MEDS ORDERED: ONDANSETRON 4 MG/2 ML VIAL ONE (19:05)
[2022-05-13 19:12] LABS: Urine RBC <5 /HPF (None Seen)
[2022-05-13 19:13] LABS: Magnesium 2.7 mg/dL (1.8-2.4); Potassium 4.2 mmol/L (3.5-5.1); Troponin High Sensitivity 5.8 pg/mL (<58.9)
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
[2022-05-15 08:38] VITALS: TEMP 98.6
[2022-05-15 08:40] VITALS: BP 136/84; O2SAT 98
--- NOTE | 2022-05-17 14:17 | EKG ---
Test Date: 2022-05-13 Test Time: 19:19:13 Cable Splicer: NAZARIO MEASUREMENT RESULTS: Intervals: Rate: 68 SD: 142 QRSD: 84 QT: 388 QTc: 412 [place]: P: 98 SD: 142 QRS: 81 T: 66 INTERPRETIVE STATEMENTS: Normal sinus rhythm with sinus arrhythmia Minimal voltage criteria for LVH, may be normal variant Borderline ECG Compared to ECG 02/19/2022 18:52:13 Left ventricular hypertrophy now present Electronically Signed On 05-17-22 14:14:18 CDT by Tj Nicholas
== END 2022-05-13 20:09 | disposition home or self-care (01) ==
LOC: ER 15:50
DX: R11.2 Nausea with vomiting, unspecified (principal); T67.5XXA Heat exhaustion, unspecified, initial encounter; F17.210 Nicotine dependence, cigarettes, uncomplicated
CPT/HCPCS: 36415; 80048; 81003; 81015; 82550; 83735; 84484; 85025; 85610; 93005; 96374; 96375; 99284; J2405; J7030